=== PATIENT | female | born 1960 | race Caucasian/White ===

== ENCOUNTER → 2016-10-09 | Outpatient (REF) | payer BC | LOC: M LAB REF 15:26 | PROVIDERS: ATTEND Family Medicine | DX: L85.9 Epidermal thickening, unspecified (principal) ==

== ENCOUNTER → 2017-02-26 | Outpatient (CLI) | payer BC ==
[2017-02-26 07:43] LABS: BASO # 0.1 K/mm3 (0.0-0.2); BASO % 0.8 % (0.0-1.0); EOS # 0.7 K/mm3 (0.0-0.50); EOS % 10.5 % (0.0-3.0); LARGE UNSTAINED CELL # 0.2 K/mm3 (0.0-0.4); LARGE UNSTAINED CELL % 3.1 % (0.0-4.0); LYMPH # 2.5 K/mm3 (1.5-4.5); LYMPH % 33.4 % (24.0-44.0); MEAN CORPUSCULAR HEMOGLOBIN 31.7 pg (27.0-33.0); MEAN CORPUSCULAR HGB CONC 34.3 g/dl (32.0-36.5); MEAN CORPUSCULAR VOLUME 92.4 fl (80.0-96.0); MONO # 0.4 K/mm3 (0.0-0.8); MONO % 6.1 % (0.0-5.0); NEUTROPHILS # 3.2 K/mm3 (1.8-7.7); PLATELET COUNT, AUTOMATED 248 k/mm3 (150-450); RED CELL DISTRIBUTION WIDTH 12.9 % (11.5-14.5); WHITE BLOOD COUNT 6.9 K/mm3 (4.0-10.0)
[2017-02-26 08:21] LABS: ALBUMIN 3.7 GM/DL (3.2-5.2); ALBUMIN/GLOBULIN RATIO 1.16 (1.00-1.93); ALKALINE PHOSPHATASE 91 U/L (45-117); ALT/SGPT 22 U/L (12-78); ANION GAP 5 MEQ/L (8-16); AST/SGOT 26 U/L (15-37); BILIRUBIN,TOTAL 0.3 MG/DL (0.2-1.0); BLOOD UREA NITROGEN 17 MG/DL (7-18); CALCIUM LEVEL 8.2 MG/DL (8.5-10.1); CARBON DIOXIDE LEVEL 26 MEQ/L (21-32); CHLORIDE LEVEL 105 MEQ/L (98-107); CHOLESTEROL LEVEL 209 MG/DL (<200); CREATININE FOR GFR 0.68 MG/DL (0.55-1.02); FREE T4 0.82 NG/DL (0.76-1.46); GLOMERULAR FILTRATION RATE > 60.0 (>51); GLUCOSE, FASTING 109 MG/DL (70-105); POTASSIUM SERUM 4.2 MEQ/L (3.5-5.1); SODIUM LEVEL 136 MEQ/L (136-145); TOTAL PROTEIN 6.9 GM/DL (6.4-8.2); TRIGLYCERIDES LEVEL 186 MG/DL (<150)
== END ==
LOC: M LAB 06:27
PROVIDERS: ATTEND Family Medicine
DX: E78.2 Mixed hyperlipidemia (principal)

== ENCOUNTER → 2017-03-12 | Outpatient (CLI) | payer BC ==
--- NOTE | 2017-03-12 08:48 | REPMRS ---
Patient History The patient states she has not had a clinical breast exam in over a year. No known family history of cancer. Digital Mammo Screening Bilat: March 12, 2017 - Exam #: [id number] Bilateral CC and MLO view(s) were taken. Technologist: Karina Rodgers, Technologist Prior study comparison: March 13, 2011, digital bilateral screening mammo, performed at [facility]. FINDINGS: There are scattered fibroglandular densities. There is a moderate amount of residual fibroglandular tissue which is fairly symmetric. There is no interval development of dominant mass, architectural distortion, or clustered microcalcification typical of malignancy. There has been no change in the appearance of the mammogram from the prior studies. ASSESSMENT: BI-RADS/ACR category 1 mammogram. Negative. Recommendation Routine screening mammogram of both breasts in 1 year (for women over age 40). This mammogram was interpreted with the aid of an FDA-approved computer-aided dectection system. Electronically Signed By: Emmanuel Murray MD 03/12/17 0833
== END ==
LOC: M RAD 07:26
PROVIDERS: ATTEND Family Medicine
DX: Z12.31 Encounter for screening mammogram for malignant neoplasm of breast (principal)

== ENCOUNTER → 2017-10-01 | Outpatient (CLI) | payer BC ==
[2017-10-01 07:50] LABS: ALBUMIN 3.6 GM/DL (3.2-5.2); ALKALINE PHOSPHATASE 91 U/L (45-117); ALT/SGPT 10 U/L (12-78); ANION GAP 6 MEQ/L (8-16); AST/SGOT 15 U/L (7-37); BILIRUBIN,TOTAL 0.3 MG/DL (0.2-1.0); BLOOD UREA NITROGEN 20 MG/DL (7-18); CALCIUM LEVEL 9.1 MG/DL (8.5-10.1); CARBON DIOXIDE LEVEL 28 MEQ/L (21-32); CHLORIDE LEVEL 111 MEQ/L (98-107); CHOLESTEROL LEVEL 148 MG/DL (<200); CHOLESTEROL RISK RATIO 3.609 (<5); CREATININE FOR GFR 0.62 MG/DL (0.55-1.02); GLOMERULAR FILTRATION RATE > 60.0 (>51); GLUCOSE, FASTING 117 MG/DL (70-105); HDL CHOLESTEROL 41 MG/DL (>40); LDL CHOLESTEROL 87.6 MG/DL (<100); NON-HDL-C 107 MG/DL; POTASSIUM SERUM 4.6 MEQ/L (3.5-5.1); SODIUM LEVEL 145 MEQ/L (136-145); TOTAL PROTEIN 7.2 GM/DL (6.4-8.2); TRIGLYCERIDES LEVEL 97 MG/DL (<150)
[2017-10-01 08:42] LABS: ESTIMATED AVERAGE GLUCOSE 126 MG/DL (60-110)
== END ==
LOC: M LAB 06:46
DX: R73.01 Impaired fasting glucose (principal); E78.2 Mixed hyperlipidemia
CPT/HCPCS: 80053

== ENCOUNTER → 2018-01-27 | Outpatient (CLI) | payer BC ==
[2018-01-27 07:06] LABS: ESTIMATED AVERAGE GLUCOSE 120 MG/DL (60-110); HEMOGLOBIN A1c 5.8 %
[2018-01-27 07:11] LABS: ALBUMIN 3.7 GM/DL (3.2-5.2); ALBUMIN/GLOBULIN RATIO 0.95 (1.00-1.93); ALKALINE PHOSPHATASE 148 U/L (45-117); ALT/SGPT 12 U/L (12-78); ANION GAP 6 MEQ/L (8-16); AST/SGOT 17 U/L (7-37); BILIRUBIN,TOTAL 0.3 MG/DL (0.2-1.0); BLOOD UREA NITROGEN 22 MG/DL (7-18); CALCIUM LEVEL 8.9 MG/DL (8.5-10.1); CARBON DIOXIDE LEVEL 28 MEQ/L (21-32); CHLORIDE LEVEL 108 MEQ/L (98-107); CHOLESTEROL LEVEL 182 MG/DL (<200); CHOLESTEROL RISK RATIO 4.439 (<5); CREATININE FOR GFR 0.66 MG/DL (0.55-1.30); GLOMERULAR FILTRATION RATE > 60.0 (>51); GLUCOSE, FASTING 101 MG/DL (70-100); HDL CHOLESTEROL 41 MG/DL (>40); LDL CHOLESTEROL 102.8 MG/DL (<100); NON-HDL-C 141 MG/DL; POTASSIUM SERUM 4.2 MEQ/L (3.5-5.1); SODIUM LEVEL 142 MEQ/L (136-145); TOTAL PROTEIN 7.6 GM/DL (6.4-8.2); TRIGLYCERIDES LEVEL 191 MG/DL (<150)
== END ==
LOC: M LAB 06:18
DX: R73.03 Prediabetes (principal); E78.2 Mixed hyperlipidemia
CPT/HCPCS: 80053

== ENCOUNTER → 2018-04-29 | Outpatient (CLI) | payer BC ==
[~2018-04-29] MED LIST: GASTROGRAFIN SOLUTION 30ML (Q9963) As Ordered; ISOVUE-370 76% 100ML VIAL (Q9967) As Ordered
== END ==
LOC: M RAD 12:48
DX: R10.32 Left lower quadrant pain (principal); K52.89 Other specified noninfective gastroenteritis and colitis; K57.30 Diverticulosis of large intestine without perforation or abscess without bleeding
CPT/HCPCS: Q9963

== ENCOUNTER → 2018-06-13 | Outpatient (CLI) | payer BC ==
[2018-06-13 07:50] LABS: ESTIMATED AVERAGE GLUCOSE 123 MG/DL (60-110); HEMOGLOBIN A1c 5.9 %
[2018-06-13 08:00] LABS: ALBUMIN 3.6 GM/DL (3.2-5.2); ALBUMIN/GLOBULIN RATIO 1.03 (1.00-1.93); ALKALINE PHOSPHATASE 177 U/L (45-117); ALT/SGPT 16 U/L (12-78); ANION GAP 8 MEQ/L (8-16); AST/SGOT 22 U/L (7-37); BILIRUBIN,DIRECT < 0.1 MG/DL (0.0-0.2); BILIRUBIN,TOTAL 0.3 MG/DL (0.2-1.0); BLOOD UREA NITROGEN 17 MG/DL (7-18); CARBON DIOXIDE LEVEL 26 MEQ/L (21-32); CHLORIDE LEVEL 108 MEQ/L (98-107); CREATININE FOR GFR 0.69 MG/DL (0.55-1.30); FREE T4 0.77 NG/DL (0.76-1.46); GLOMERULAR FILTRATION RATE > 60.0 (>51); GLUCOSE, FASTING 122 MG/DL (70-100); POTASSIUM SERUM 4.3 MEQ/L (3.5-5.1); SODIUM LEVEL 142 MEQ/L (136-145); TOTAL PROTEIN 7.1 GM/DL (6.4-8.2)
== END ==
LOC: M LAB 06:32
DX: R73.03 Prediabetes (principal)
CPT/HCPCS: 82248

== ENCOUNTER 2018-08-12 07:07 | Emergency (ER) | payer BC ==
[2018-08-12] MEDS: KETOROLAC 60 MG/2 ML VIAL (J1885) IM (07:43)
[2018-08-12] MEDS: diazePAM 5 MG TAB PO (07:43)
[2018-08-12] MEDS: MORPHINE 2 MG/ML 1ML SYRINGE (J2270) IM (08:08)
== END 2018-08-12 09:13 | disposition home or self-care (01) ==
LOC: M ED 07:07
DX: M62.830 Muscle spasm of back (principal); W01.0XXA Fall on same level from slipping, tripping and stumbling without subsequent striking against object, initial encounter
CPT/HCPCS: J1885

== ENCOUNTER → 2018-08-19 | Outpatient (CLI) | payer BC | LOC: M SMT 10:13 | DX: R93.89 Abnormal findings on diagnostic imaging of other specified body structures (principal); M51.16 Intervertebral disc disorders with radiculopathy, lumbar region | CPT/HCPCS: 72114 ==

== ENCOUNTER → 2018-08-22 | Outpatient (CLI) | payer BC | LOC: M RAD 17:05 | DX: M84.48XA Pathological fracture, other site, initial encounter for fracture (principal); C79.51 Secondary malignant neoplasm of bone | CPT/HCPCS: 77067 ==

== ENCOUNTER → 2018-08-25 | Outpatient (CLI) | payer BC ==
[~2018-08-25] MED LIST changes: +CALC1TAB26 PO; -GASTROGRAFIN SOLUTION 30ML (Q9963) As Ordered; +GEMF600T5 PO; +IBUP80TA; -ISOVUE-370 76% 100ML VIAL (Q9967) As Ordered; +LEXA1TAB2 PO; +LIDOCAINE 1% MDV 20ML VIAL As Ordered ONE; +MULTCAP PO; +NAPR-885 PO; +ROBA500T PO; +VITA500C19 PO
--- NOTE | 2018-08-25 14:26 | REP ---
BILATERAL DIAGNOSTIC MAMMOGRAM AND LEFT BREAST ULTRASOUND: Bilateral compression views are performed and correlated with recent mammogram of 08/22/2018. A suspected right retroareolar nodule compresses out to an unchanged appearance with no persistent abnormality. However, on the left there are two persistent nodules, one at 6-o'clock measuring 8 mm in maximum diameter and another at about the 9-o'clock position posteriorly measuring about 1.5 cm in diameter. Majority of margins are fairly well circumscribed with no spiculation. No associated microcalcifications are seen. Real-time sonographic evaluation of the left breast performed. At the 6-o'clock position, is a hypoechoic mass which is oval in shape and measures 8 x 4 x 5 mm, with distal acoustic shadowing. This appears suspicious. At 10-o'clock there is a hypoechoic mass also demonstrating distal acoustic shadowing measuring 1.1 x 0.6 x 0.8 cm. Both are suspicious and ultrasound guided biopsy is recommended. IMPRESSION: ACR 4 suspicious. Two persistent nodules on diagnostic mammogram of left breast correspond to hypoechoic shadowing masses by ultrasound. One is at 6-o'clock and one is at 10-o'clock. Recommend ultrasound guided biopsy of both of these nodules. BI-RADS/ACR category 4 mammogram. Suspicious abnormality - biopsy should be considered. Usually requires biopsy. The patient letter being requested is M4. Electronically Signed by Chai Scanlon MD 08/25/2018 03:18 P
--- NOTE | 2018-08-25 17:16 | REP ---
ULTRASOUND-GUIDED LEFT BREAST BIOPSY The procedure was performed under the direct supervision of Dr. Scanlon. The patient has a history of to left breast nodules one at the 6 o'clock position measuring 8 mm in maximum diameter and another at the 9 o'clock position posteriorly measuring about 1.5 cm. These were seen on a previous ultrasound performed earlier today. The risks and benefits of the procedure were explained to the patient and informed consent was obtained. The two nodules were localized using ultrasound guidance. The skin was prepped and draped in a sterile fashion. 1% lidocaine was used as a local anesthetic. The nodule in the 6 o'clock position was addressed first. Using ultrasound guidance a 13-gauge suction assisted Mammotome needle was inserted and six core biopsy samples were obtained. A marker clip was placed at the biopsy site. The nodule in the 9 o'clock position was then addressed. Using ultrasound guidance a 13-gauge suction assisted Mammotome needle was inserted and six core biopsy samples were obtained. A marker clip was placed at the biopsy site. The patient tolerated the procedure well and there were no immediate complications. After the appropriate amount of monitored convalescence the patient was discharged from the department. Reviewed by OLGA Salinas 08/25/2018 05:05 P Electronically Signed by Chai Scanlon MD 08/25/2018 05:06 P
--- NOTE | 2018-08-25 18:34 | REP ---
POSTBIOPSY MAMMOGRAM, LEFT BREAST: Postbiopsy mammogram of the left breast was performed in the MLO and CC projections. Patient had ultrasound guided biopsy of two nodules in the left breast. There is an old metallic clip in the region of 6 o'clock at the site of the nodule identified mammographically and sonographically. However the metallic marking clip appears to be located about 1.4 cm anterior to the nodule on the ML view. A metallic clip is seen at the site of the more posterior and superior nodule in the left breast at about the 10 o'clock position. Electronically Signed by Chai Scanlon MD 08/26/2018 08:59 A
== END ==
LOC: M RADPRO 11:40 → M RAD 11:40
PROVIDERS: ATTEND Physician Assistant
DX: C50.212 Malignant neoplasm of upper-inner quadrant of left female breast (principal); Z88.8 Allergy status to other drugs, medicaments and biological substances; Z88.1 Allergy status to other antibiotic agents; Z79.899 Other long term (current) drug therapy

== ENCOUNTER → 2018-10-06 | Outpatient (CLI) | payer BC ==
[~2018-10-06] MED LIST changes: +GASTROGRAFIN SOLUTION 30ML (Q9963) As Ordered ONE; +ISOVUE-370 76% 100ML VIAL (Q9967) As Ordered ONE; -LIDOCAINE 1% MDV 20ML VIAL As Ordered ONE
--- NOTE | 2018-10-06 15:54 | REP ---
Whole body radionuclide bone scan: History: Breast carcinoma. Lytic bone lesions. Staging. No comparison bone scan. Comparison is made with recent CT scans of the chest and abdomen. Technique: 22.0 mCi technetium 99m MDP is injected and standard whole body bone scan imaging is acquired. Scintigraphic findings: There is widespread skeletal metastatic disease pattern throughout the axial skeleton with involvement of bilateral femurs, shoulders, pelvis, sacrum, lumbar, thoracic and cervical spine, calvarium and multiple bilateral ribs. There is also a lesion in the left knee below the joint which may be the proximal tibia. There is also a focus of increased uptake in the left patella. Uptake is most avid in the thoracolumbar junction at T12 and L1. There is uptake although faint in both kidneys and in the urinary bladder. Impression: Widespread skeletal metastatic disease. Electronically Signed by Robert Murray MD 10/06/2018 05:25 P
--- NOTE | 2018-10-06 22:10 | REP ---
Clinical: Breast cancer for staging. Technique: Axial contrast enhanced images from the lung bases to the pubic symphysis using oral (per protocol) and 100 ml Isovue 370 intravenous contrast material with delayed images of the abdomen as well as coronal and sagittal re-formations. Comparison: 04/29/2018. Findings: Lung bases are clear. Visualized heart and pericardium normal. Liver, spleen, pancreas, gallbladder, bilateral adrenal glands and kidneys are normal. The enteric system is without obstruction or acute inflammatory process. Sigmoid diverticulosis noted without acute diverticulitis. The patient is status post hysterectomy. Collapsed bladder identified. No ascites. No significant intraperitoneal or retroperitoneal adenopathy. Abdominal aorta and vasculature appears normal. Diffuse mottled lytic and sclerotic changes are noted throughout the visualized skeletal structures including visualized ribs, thoracolumbar spine, and pelvis/hips consistent with osseous metastatic disease related to the given history of breast cancer. Impression: 1. Diffuse osseous metastatic disease. 2. Sigmoid diverticulosis without acute diverticulitis. 3. Evidence for prior hysterectomy. Electronically Signed by Gary Nina MD 10/06/2018 10:02 P
== END ==
LOC: M RAD 08:54
PROVIDERS: ATTEND Internal Medicine Hematology & Oncology
DX: C50.912 Malignant neoplasm of unspecified site of left female breast (principal); C79.51 Secondary malignant neoplasm of bone; K57.30 Diverticulosis of large intestine without perforation or abscess without bleeding
CPT/HCPCS: 74177; 78306; A9503; Q9963; Q9967

== ENCOUNTER → 2018-12-05 | Outpatient (REF) | payer BC ==
[~2018-12-05] MED LIST changes: -GASTROGRAFIN SOLUTION 30ML (Q9963) As Ordered ONE; -ISOVUE-370 76% 100ML VIAL (Q9967) As Ordered ONE
== END ==
LOC: M LAB REF 17:52
PROVIDERS: ATTEND Physician Assistant
DX: N39.0 Urinary tract infection, site not specified (principal)

== ENCOUNTER → 2019-03-03 | Outpatient (CLI) | payer BC, OTHER ==
[~2019-03-03] MED LIST changes: +GASTROGRAFIN SOLUTION 30ML (Q9963) As Ordered ONE; +ISOVUE-370 76% 100ML VIAL (Q9967) As Ordered ONE
--- NOTE | 2019-03-03 18:01 | REP ---
CT CHEST ABDOMEN AND PELVIS WITH CONTRAST: CONTRAST: 100 mL Isovue-370. COMPARISON: Chest CT 08/22/2018. Comparison abdominal and pelvic CT is 10/06/2018. CHEST: Once again there are multiple non-enlarged mediastinal and hilar lymph nodes. No mass or adenopathy has developed. There are no pleural or pericardial effusions. Evaluation of the lung mcdonald shows evidence of bibasilar subsegmental atelectatic change. No new abnormal nodules or opacities have developed. The liver and spleen are unchanged. The gallbladder is again seen to be within normal limits. The pancreas, adrenal glands and kidneys are again seen to be within normal limits. The abdominal aorta and paraaortic regions are stable and within normal limits. The bowel loops and their mesenteries within the abdomen are within normal limits. There is no free fluid or free air. There is no evidence of an intraabdominal mass or adenopathy. CT PELVIS: There is a small amount of free pelvic fluid. The jimenez of the sigmoid colon are abnormally thickened and there is perisigmoidal fatty infiltration. This represents a change from the prior exam. Small focal areas of central low density and peripheral enhancement are seen in the pelvis adjacent to the sigmoid colon. The largest measures approximately 1.6 cm in its greatest dimension. There is no pelvic side wall adenopathy. Bone window technique throughout the entire exam again shows diffuse and wide spread skeletal metastatic disease. IMPRESSION: 1. There is sigmoid colon diverticulitis with possible small developing perisigmoidal abscesses. This is seen in conjunction with a trace amount of free pelvic fluid. There is no evidence of bowel perforation. 2. There is diffuse wide spread skeletal metastasis. 3. Other findings as described above. Electronically Signed by Yan Us DO 03/03/2019 06:25 P
== END ==
LOC: M RAD 15:08
PROVIDERS: ATTEND Nurse Practitioner
DX: C50.919 Malignant neoplasm of unspecified site of unspecified female breast (principal)
CPT/HCPCS: 71260; 74177; Q9963; Q9967

== ENCOUNTER → 2019-05-01 | Outpatient (CLI) | payer OTHER ==
--- NOTE | 2019-05-02 09:44 | REP ---
REASON: Previous history of diverticulitis. COMPARISON: Multiple, the latest 03/03/2019. CONTRAST: 100 mL Isovue-370. The lung bases are clear. The liver, gallbladder, spleen, pancreas, adrenal glands, and kidneys are within normal limits. The abdominal aorta and para-aortic regions are within normal limits. The intra-abdominal bowel loops and their mesenteries are within normal limits. There is no free fluid or free air. There is no evidence of an intra-abdominal mass or adenopathy. CT PELVIS: The jimenez of the sigmoid colon are abnormally thickened, and there is evidence of mild perisigmoidal fatty infiltration. The possible developing perisigmoidal abscess seen on the prior exam is not present today. The trace amount of free pelvic fluid seen on the prior exam has gotten even smaller. There is no evidence of free air. Bone window technique throughout the examination again shows diffuse widespread skeletal metastatic disease. A healing fracture of the right inferior pubic ramus is again noted, the appearance of which is unchanged from 10/06/2018. IMPRESSION: There has been some improvement in the suspected diverticular changes seen involving the sigmoid colon, as described above. Inflammatory changes, however, have not completely resolved. Followup is recommended. Other findings as described above. Electronically Signed by Yan Us DO 05/02/2019 11:28 A
== END ==
LOC: M RAD 12:55
DX: K57.32 Diverticulitis of large intestine without perforation or abscess without bleeding (principal)
CPT/HCPCS: 74177; Q9963; Q9967

== ENCOUNTER → 2019-12-04 | Outpatient (REF) | payer OTHER ==
[~2019-12-04] MED LIST changes: -GASTROGRAFIN SOLUTION 30ML (Q9963) As Ordered ONE; -ISOVUE-370 76% 100ML VIAL (Q9967) As Ordered ONE
== END ==
LOC: M LAB REF 17:09
PROVIDERS: ATTEND Family Medicine
DX: N39.0 Urinary tract infection, site not specified (principal)

== ENCOUNTER 2020-06-11 17:22 | Emergency (ER) | payer OTHER ==
[2020-06-11] MEDS ORDERED: FAMOTIDINE INJ 20MG/2ML VIAL (S0028 PER 1) IVP ONE (17:45)
[2020-06-11] MEDS ORDERED: ONDANSETRON 4MG/2ML VIAL IV ONE ×2 (17:45→22:45)
[2020-06-11] MEDS ORDERED: SUCRALFATE SUSP 1GM/10ML UD PO ONE (17:45)
[2020-06-11] MEDS ORDERED: MORPHINE 4 MG/ML 1ML VIAL/SYRINGE (J2270) IV PRN (17:45)
[2020-06-11] MEDS ORDERED: NS 1,000 ML IV ONE (17:45)
[2020-06-11 18:45] LABS: HEMATOCRIT 28.4 % (36.0-47.0); HEMOGLOBIN 8.9 g/dl (12.0-15.5); MEAN CORPUSCULAR HEMOGLOBIN 30.3 pg (27.0-33.0); MEAN CORPUSCULAR HGB CONC 31.3 g/dl (32.0-36.5); MEAN CORPUSCULAR VOLUME 96.6 fl (80.0-96.0); PLATELET COUNT, AUTOMATED 339 10^3/uL (150-450); RED BLOOD COUNT 2.94 10^6/uL (4.00-5.40); WHITE BLOOD COUNT 10.3 10^3/uL (4.0-10.0)
[2020-06-11 18:57] LABS: INR 0.99; PROTHROMBIN TIME 13.3 SECONDS (12.5-14.3)
[2020-06-11 19:12] LABS: ALBUMIN 1.5 GM/DL (3.2-5.2); BILIRUBIN,DIRECT 4.4 MG/DL (0.0-0.2); BILIRUBIN,TOTAL 5.3 MG/DL (0.2-1.0); TOTAL PROTEIN 5.7 GM/DL (6.4-8.2)
[2020-06-11 19:26] LABS: ANISOCYTOSIS 2+; LYMPHOCYTES 17 % (16-44); METAMYELOCYTES 1 % (0-0); MONOCYTES 8 % (0-5); NEUTROPHILS 66 % (28-66); PLATELET ESTIMATE NORMAL (NORMAL)
[2020-06-11] MEDS ORDERED: ISOVUE-370 76% 100ML VIAL As Ordered ONE (20:41)
[2020-06-11] MEDS ORDERED: oxyCODONE 5MG TAB PO ONE (21:15)
--- NOTE | 2020-06-11 21:25 | REPVR ---
PROCEDURE INFORMATION: Exam: CT Abdomen And Pelvis With Contrast Exam date and time: 06/11/2020 9:00 PM Age: 59 years old Clinical indication: Abdominal pain; Additional info: Pain, biliary stent TECHNIQUE: Imaging protocol: Computed tomography of the abdomen and pelvis with intravenous contrast. Radiation optimization: All CT scans at this facility use at least one of these dose optimization techniques: automated exposure control; mA and/or kV adjustment per patient size (includes targeted exams where dose is matched to clinical indication); or iterative reconstruction. Contrast material: ISOVUE 370; Contrast volume: 100 ml; Contrast route: INTRAVENOUS (IV); COMPARISON: CT ABD PELVIS WITH CONTRAST 05/01/2019 2:45 PM FINDINGS: Tubes, catheters and devices: Surgical drain is seen in the presacral space without fluid in the brain. Cystic lesion involving the left ovary is present measuring 4 cm. Pleural space: Moderately large dependent transudate density bilateral pleural effusions. Adjacent basilar compressive lung atelectasis Liver: Multiple ill-defined hepatic lesions measuring up to 2.2 cm are consistent with metastases and all of these are new since the prior CT 1 year ago. Gallbladder and bile ducts: Common bile duct stent is present extending into the duodenum. Pneumobilia is present and there is left lobe intrahepatic bile duct dilatation. Pancreas: Fullness of the pancreatic head is demonstrated, new since the prior exam. Spleen: Spleen appears homogeneous without focal mass. Adrenals: Adrenal glands are normal in appearance. Kidneys and ureters: Kidneys demonstrate bilateral hydronephrosis that is new. There is probably obstruction of the ureters secondary to scarring in the retroperitoneum. No identifiable ureter stone. Stomach and bowel: Stomach is distended with fluid. Multiple small bowel loops are fluid-filled and distended measuring up to 3.5 cm. Transition between dilated and nondilated small bowel appears to be at a right lower quadrant surgical anastomosis, axial image [id number]. Right periumbilical double-barrel colostomy shows no obstruction. Intraperitoneal space: Moderate volume of abdominal and pelvic free fluid is present. Peritoneal and omental carcinomatosis implants are present in the right upper quadrant anteriorly and also in the pelvis cephalad to the bladder dome. Vasculature: Atherosclerotic change present in the aorta, without aneurysm. Main portal and splenic veins enhance normally. Urinary bladder: Urinary bladder appears normal. Bones/joints: Diffuse blastic skeletal metastases are present. IMPRESSION: 1. Small bowel obstruction with small bowel dilated up to 3.5 cm. Transition point appears to be right lower quadrant small bowel surgical anastomosis. Distal to this, the small bowel is decompressed. 2. Progressive metastatic disease with multiple hepatic lesions and extensive peritoneal and omental carcinomatosis, likely malignant ascites and probable malignant bilateral pleural effusions. 3. Left hepatic lobe intrahepatic duct dilatation despite the presence of a common bile duct stent. This may be biliary obstruction secondary to a left lobe hepatic metastatic lesion. 4. No obstructive change involving the double-barrel colostomy. 5. Presacral pigtail catheter with adjacent soft tissue implants but no significant fluid collection Electronically signed by: Mark Fernandez On 06/11/2020 21:25:09 PM
--- NOTE | 2020-06-11 23:43 | REPVR ---
PROCEDURE INFORMATION: Exam: XR Chest, 1 View Exam date and time: 06/11/2020 11:06 PM Age: 59 years old Clinical indication: Other: Ng tube; Additional info: Post ng tube TECHNIQUE: Imaging protocol: XR of the chest Views: 1 view. COMPARISON: CT Chest with contrast 03/03/2019 4:51 PM FINDINGS: Tubes, catheters and devices: Right chest infusion port terminates at the SVC. Esophagogastric tube terminates within the stomach. Lungs: Mild left basilar atelectasis and/or infiltrate. There is multifocal osseous sclerosis. Pleural space: Small left-sided pleural effusion. Heart/Mediastinum: Cardiac silhouette appears within normal limits for portable technique. Bones/joints: Unremarkable. IMPRESSION: 1. Esophagogastric tube terminates within the stomach. 2. Small left-sided pleural effusion with mild adjacent atelectasis and/or infiltrate. Electronically signed by: Connor Otero On 06/11/2020 23:42:29 PM
[2020-06-12 01:00] VITALS: BP 118/73
--- NOTE | 2020-06-12 07:32 | ECGEPIP ---
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
== END 2020-06-12 01:19 | disposition short-term general hospital (02) ==
LOC: M ED 17:22 → EDBD 17:22 → M ED 06-12 01:19
DX: K56.609 Unspecified intestinal obstruction, unspecified as to partial versus complete obstruction (principal); K76.89 Other specified diseases of liver; C50.919 Malignant neoplasm of unspecified site of unspecified female breast; N13.39 Other hydronephrosis; J90 Pleural effusion, not elsewhere classified; R94.31 Abnormal electrocardiogram [ECG] [EKG]; Z96.89 Presence of other specified functional implants; Z97.8 Presence of other specified devices; E78.5 Hyperlipidemia, unspecified; Z87.891 Personal history of nicotine dependence; Z88.1 Allergy status to other antibiotic agents; Z88.2 Allergy status to sulfonamides; Z79.899 Other long term (current) drug therapy
CPT/HCPCS: 36415; 71045; 74177; 80047; 80076; 83605; 83690; 85025; 85610; 86850; 86900; 86901; 87040; 93005; 93041; 99285; J2270; J2405; Q9967